=== PATIENT | male | born 1955 | race Caucasian/White ===

== ENCOUNTER 2018-04-27 06:15 | Day surgery (SDC) | payer MEDICARE ==
[~2018-04-27] VITALS: Ht 177.8 cm; Wt 107.3 kg
[~2018-04-27 06:15] MED LIST: ALBIPROI; ALBU.083IS; ALBU90OI; ALLO300; AMOX1XR; ASCO500; ASPI81EC; BENA20; BENAML20/5; CALGLU500; CARV25; ESOM20; FLUSAL5005; FURO20; FURO40; FURO80; GUAI600ER; HYDACE5 PO; HYDCHL12.5; INDO50; INDO50 PO; KETEK; MAGGLU250; METF500; METO25ER; MOMENI; MONT10T; MULVITA; PANT40; POTA8; POTCHL10ER; POTCHL20ER; PRED20; ROSU10TA; SIMV40; SPIR25; TOCO400; [UNRECOGNIZED DRUG - OTHER]
[2018-04-27] MEDS ORDERED: BREO ELLIPTA 11 EACH (07:11)
[2018-04-27] MEDS ORDERED: ALBU3IS (07:11)
[2018-04-27] MEDS ORDERED: ALBU90OI6 (07:11)
[2018-04-27] MEDS ORDERED: Ipratr-Albuterol3 ML (07:12)
[2018-04-27] MEDS ORDERED: LOSA25 (07:13)
[2018-04-27] MEDS ORDERED: NIFE10 (07:13)
== END 2018-04-27 08:35 | disposition home or self-care (01) ==
LOC: ORSCSDS 06:15
PROVIDERS: Orthopaedic Surgery
PROC: 0LN80ZZ Release Left Hand Tendon, Open Approach (ICD-10-PCS; principal; 2018-04-27 07:30)
DX: M65.332 Trigger finger, left middle finger (principal); B19.10 Unspecified viral hepatitis B without hepatic coma; I10 Essential (primary) hypertension; M19.90 Unspecified osteoarthritis, unspecified site; I50.9 Heart failure, unspecified; Z87.891 Personal history of nicotine dependence; E66.9 Obesity, unspecified; Z68.33 Body mass index [BMI] 33.0-33.9, adult; Z79.84 Long term (current) use of oral hypoglycemic drugs; Z79.899 Other long term (current) drug therapy; Z79.82 Long term (current) use of aspirin
CPT/HCPCS: 82947; J0171; J0690; J2250; J3010; J7120

== ENCOUNTER 2018-07-08 15:27 | Emergency (ER) | payer MEDICARE ==
[~2018-07-08] VITALS: Ht 175.3 cm; Wt 86.2 kg
[~2018-07-08 15:27] MED LIST changes: +ALBU3IS; +ALBU90OI6; +BREO ELLIPTA 11 EACH; +Ipratr-Albuterol3 ML; +LOSA25; +NIFE10
== END 2018-07-08 17:05 | disposition home or self-care (01) ==
LOC: ER 15:27
DX: S43.421A Sprain of right rotator cuff capsule, initial encounter (principal); Z88.8 Allergy status to other drugs, medicaments and biological substances; Z79.899 Other long term (current) drug therapy; Z79.84 Long term (current) use of oral hypoglycemic drugs; Z79.82 Long term (current) use of aspirin; Z87.891 Personal history of nicotine dependence; W17.89XA Other fall from one level to another, initial encounter
CPT/HCPCS: 73030; 99283-25

== ENCOUNTER 2020-01-10 06:57 | Day surgery (SDC) | payer MEDICARE ==
[~2020-01-10] VITALS: Ht 177.8 cm; Wt 107.0 kg
[~2020-01-10 06:57] MED LIST changes: -FURO40; +FURO40 PO; -LOSA25; +LOSA25 PO; -NIFE10; +NIFE10 PO; +OMEP20ER PO
--- NOTE | 2020-01-10 12:25 | NUR ---
10CC AIR REMOVED FROM R WRIST TR BAND. -BLEEDING OR SWELLING.
--- NOTE | 2020-01-10 13:52 | NUR ---
R WRIST TR BAND REMOVED. PUNCTURE AREA CLEANED WITH NS. CLOTH DOT DRSG PLACED. R WRIST SPLINT REAPPLIED. -BLEEDING OR SWELLING. IV REMOVED. PT TAKEN OUT OF THE [facility] VIA W/C.
== END 2020-01-10 14:20 | disposition home or self-care (01) ==
LOC: MHTC 06:57
PROC: 4A023N7 Measurement of Cardiac Sampling and Pressure, Left Heart, Percutaneous Approach (ICD-10-PCS; principal; 2020-01-10)
PROC: B201YZZ Plain Radiography of Multiple Coronary Arteries using Other Contrast (ICD-10-PCS; principal; 2020-01-10)
PROC: B205YZZ Plain Radiography of Left Heart using Other Contrast (ICD-10-PCS; principal; 2020-01-10)
DX: R07.89 Other chest pain (principal); I25.10 Atherosclerotic heart disease of native coronary artery without angina pectoris; E66.9 Obesity, unspecified; I11.9 Hypertensive heart disease without heart failure; E11.9 Type 2 diabetes mellitus without complications; K21.9 Gastro-esophageal reflux disease without esophagitis; Z79.899 Other long term (current) drug therapy; Z79.4 Long term (current) use of insulin; Z87.891 Personal history of nicotine dependence; Z79.84 Long term (current) use of oral hypoglycemic drugs; Z88.8 Allergy status to other drugs, medicaments and biological substances; Z79.82 Long term (current) use of aspirin
CPT/HCPCS: 76937; 85347; 92978; 92979; 93005; 93010; 93454; 99152; 99153; C1769; C1887; C1894; J1644; J2250; J3010; J7030; Q9967

== ENCOUNTER 2021-02-26 06:10 | Day surgery (SDC) | payer MEDICARE ==
[~2021-02-26] VITALS: Ht 177.8 cm; Wt 84.2 kg
[~2021-02-26 06:10] MED LIST changes: +ADALAT CC30 MG PO; +ALBU3IS INH; +ALBUTEROL2.5 MG/0.5 INH; +ALLO300 PO; +CARV25 PO; +EZET10 PO; +GLUCOPHAGE1000 M1 PO; +IPRATROPIUM BRO30 ML; +LOSA50 PO; +POTA10T PO; +PROAIR RESPICL90 MCG INH; +REPATHA SU140 MG/1 M SC; +TADALAFIL5 M1 PO
--- NOTE | 2021-02-26 07:56 | NUR ---
02/26/21 0756 Selvin Maier 0.15ML OF EPI 1MG/ML TO 30MG OF MARCAINE 0.5% TO CREATE A SOLUTION OF MARCAINE 05% WITH EPI 1:200,000.
== END 2021-02-26 09:20 | disposition home or self-care (01) ==
LOC: ORSCSDS 06:10
PROVIDERS: Orthopaedic Surgery
PROC: 0LN70ZZ Release Right Hand Tendon, Open Approach (ICD-10-PCS; principal; 2021-02-26 07:30)
DX: M65.331 Trigger finger, right middle finger (principal); M65.321 Trigger finger, right index finger; I10 Essential (primary) hypertension; Z87.891 Personal history of nicotine dependence; E11.9 Type 2 diabetes mellitus without complications; E78.5 Hyperlipidemia, unspecified; Z79.84 Long term (current) use of oral hypoglycemic drugs; Z79.899 Other long term (current) drug therapy
CPT/HCPCS: 82947; J0171; J0690; J1100; J1885; J2250; J2405; J2704; J3010; J7120

== ENCOUNTER 2025-05-26 09:20 | Day surgery (SDC) | payer OTHER ==
[~2025-05-26] VITALS: Ht 177.8 cm; Wt 109.1 kg
[~2025-05-26 09:20] MED LIST changes: +DOXA4 PO; +FORMOTEROL20 MCG/2 M; +NS 500 ML IV ONE; +VERA180ER PO
[2025-05-26] MEDS ORDERED: CeFAZolin Sodium 2,000 MG VIAL ONE (09:59)
[2025-05-26] MEDS ORDERED: NS 100 ML IV ONE (09:59)
[2025-05-26] MEDS ORDERED: Cyclobenzaprine5 MG (10:05)
[2025-05-26] MEDS ORDERED: XOLAIR SC (10:07)
[2025-05-26] MEDS ORDERED: NS 500 ML IV ONE (10:20)
[2025-05-26] MEDS ORDERED: Midazolam HCl 1MG / ML 2ML Vial ONE (11:25)
[2025-05-26] MEDS ORDERED: Lidocaine 2%-Epineph 1:100000 20 ML MDV INJ ONE (11:54)
[2025-05-26] MEDS ORDERED: Lidocaine HCl 2% 10 ML SDA ONE (11:59)
[2025-05-26 12:43] VITALS: BP 138/84
== END 2025-05-26 12:41 | disposition home or self-care (01) ==
LOC: ORSCSDS 09:20
PROVIDERS: Orthopaedic Surgery
PROC: 0LN80ZZ Release Left Hand Tendon, Open Approach (ICD-10-PCS; principal; 2025-05-26 11:00)
DX: M65.322 Trigger finger, left index finger (principal); M65.352 Trigger finger, left little finger; M65.332 Trigger finger, left middle finger; M65.312 Trigger thumb, left thumb; I10 Essential (primary) hypertension; E78.5 Hyperlipidemia, unspecified; E11.9 Type 2 diabetes mellitus without complications; E66.9 Obesity, unspecified; Z68.34 Body mass index [BMI] 34.0-34.9, adult; Z87.891 Personal history of nicotine dependence; Z79.84 Long term (current) use of oral hypoglycemic drugs; Z79.899 Other long term (current) drug therapy
CPT/HCPCS: 82947; J0690; J2003; J2250; J2704; J7040